=== PATIENT | female | born 1935 | race Caucasian/White ===

== ENCOUNTER 2021-09-26 13:18 | Outpatient (CLI) | payer OTHER, SELFPAY ==
[2021-09-26 14:07] LABS: Calcium 10.5 mg/dL (8.4-10.2)
== END 2021-09-26 13:19 | disposition home or self-care (01) ==
LOC: ANHLAB 13:20
PROVIDERS: PCP Family Medicine; Visit Provider Nurse Practitioner Family
DX: E83.51 Hypocalcemia (principal)
CPT/HCPCS: 36415; 82310

== ENCOUNTER 2022-01-05 15:20 | Outpatient (CLI) | payer OTHER, SELFPAY ==
[2022-01-05 16:17] LABS: Calcium 10.1 mg/dL (8.4-10.2)
== END 2022-01-05 15:21 | disposition home or self-care (01) ==
LOC: ANHLAB 15:21
PROVIDERS: PCP Family Medicine; Visit Provider Nurse Practitioner Family
DX: E83.51 Hypocalcemia (principal); E83.52 Hypercalcemia
CPT/HCPCS: 36415; 82310

== ENCOUNTER 2023-09-10 13:04 | Outpatient (CLI) | payer OTHER, SELFPAY ==
--- NOTE | ~2023-09-10 | US_ITS ---
EXAMINATION:US venous doppler LE BI INDICATION: TECHNIQUE: Multiple grayscale, color flow and Doppler images of the lower extremity deep venous syste ms were obtained and reviewed. COMPARISON: FINDINGS: The common femoral, superficial femoral and popliteal veins demonstrate normal respiratory variation, augmentation and compressibility. Color flow is also seen within the posterior tibial, pe roneal, greater saphenous and profunda veins. There is an irregular shaped hypoechoic mass posterior to the knee medially measuring 1.9 x 1.3 cm. IMPRESSION: 1: No lower extremity deep venous thrombosis. 2: Superficial oval hypoechoic mass posterior to the knee medially measuring up to 1.9 cm, likely he matoma. Recommend follow-up ultrasound for and 3-4 weeks to assess for improvement. Reviewed, dictated and finalized at location B. IMPRESSION: 1: No lower extremity deep venous thrombosis. 2: Superficial oval hypoechoic mass posterior to the knee medially measuring u p to 1.9 cm, likely hematoma. Recommend follow-up ultrasound for and 3-4 weeks to assess for improvement.
== END 2023-09-10 13:05 | disposition home or self-care (01) ==
LOC: ANHIMG 13:04
PROVIDERS: PCP Family Medicine; Visit Provider Nurse Practitioner Family
DX: M79.89 Other specified soft tissue disorders (principal)
CPT/HCPCS: 93970

== ENCOUNTER 2023-10-08 13:13 | Outpatient (CLI) | payer OTHER, SELFPAY ==
--- NOTE | ~2023-10-08 | US_ITS ---
EXAMINATION: US soft tissue LE RT DATE: 10/08/2023 13:38 INDICATION: Right lower limb mass posterior medial to the knee. TECHNIQUE: Multiple grayscale and Doppler ultrasound images of the right lower limb were obtained. COMPARISON: Ultrasound 09/10/2023 FINDINGS: There is thrombosis of the right greater saphenous vein with focal enlargement posterior to the knee. IMPRESSION: 1. Thrombosis of right greater saphenous vein with focal enlargement posterior to the knee correlatin g with the mass seen on prior imaging. Reviewed, dictated and finalized at location A. IMPRESSION: 1. Thrombosis of right greater saphenous vein with focal enlargement posterior to the knee correlating with the mass seen on prior imaging.
== END 2023-10-08 13:14 | disposition home or self-care (01) ==
LOC: ANHIMG 13:14
PROVIDERS: PCP Family Medicine; Visit Provider Nurse Practitioner Family
DX: M25.461 Effusion, right knee (principal); I82.811 Embolism and thrombosis of superficial veins of right lower extremity
CPT/HCPCS: 76882

== ENCOUNTER 2024-09-09 19:47 | Emergency (ER) | payer OTHER, SELFPAY ==
--- NOTE | ~2024-09-09 | CT_ITS ---
EXAMINATION: CT brain wo con DATE: 09/10/2024 00:11 INDICATION: Status post fall TECHNIQUE: Computed tomography (CT) of the head was performed without intravenous contrast. The dose- length product was 756.67 mGy-cm. Automated exposure control and iterative reconstruction technique were employed. COMPARISON: CT dated 10/01/2012 FINDINGS: Generalized atrophy. There are scattered mild periventricular and subcortical white matter changes, most likely related to small vessel ischemic disease (microangiopathy). No ventriculomegaly or midline shift. Basilar cisterns are patent. Small low-density extra-axial mass measuring 22 x 14 m m, slightly increased compared with prior study, likely benign meningioma. No acute hemorrhage, infar ction, mass or mass effect. IMPRESSION: 1. No acute intracranial abnormality. 2: Subtle increased size of extra-axial left parietal lobe low-density mass with broad-based dural at tachment measuring 22 x 14 mm, most consistent with benign meningioma. 3: Chronic age-related findings. Reviewed, dictated and finalized at location A. IMPRESSION: 1. No acute intracranial abnormality. 2: Subtle increased size of extra-axial left parietal lobe low-density mass wit h broad-based dural attachment measuring 22 x 14 mm, most consistent with benig n meningioma. 3: Chronic age-related findings.
--- NOTE | ~2024-09-09 | XR_ITS ---
XR chest 1V 09/10/2024 00:02 Indication: Status post fall. Chest pain. Procedure: AP view of the chest Comparison: 06/18/2012 Findings: Heart size normal. No focal air space disease, pulmonary edema, pleural effusion or suspect ed pneumothorax. Impression: 1: No acute cardiopulmonary disease. Reviewed, dictated and finalized at location A. Impression: 1: No acute cardiopulmonary disease.
--- NOTE | ~2024-09-09 | XR_ITS ---
XR pelvis 1-2V 09/10/2024 00:02 Indication: Status post fall. Pelvic pain. Procedure: AP view of the pelvis Comparison: 12/14/2011 Findings: Mild symmetric osteoarthritis of the hips. Pelvic rings intact. No fracture, subluxation or dislocation. There is levoscoliosis of the lumbar spine. No soft tissue abnormality. Nonspecific vis ualized bowel gas pattern. Impression: 1: Mild symmetric osteoarthritis of the hips. Reviewed, dictated and finalized at location A. Impression: 1: Mild symmetric osteoarthritis of the hips.
--- NOTE | ~2024-09-09 | XR_ITS ---
EXAM: XR shoulder RT min 2V DATE: 09/09/2024 22:45 HISTORY: fall . COMPARISON: None available. FINDINGS: Osteopenia. No fracture or dislocation. No lytic or blastic lesion. Mild AC joint and kadeem ohumeral joint osteoarthritis. Subacromial narrowing as can be seen with rotator cuff pathology. No e rosion or periosteal change. Soft tissues within normal limits. IMPRESSION: No acute osseous finding in the left shoulder. Reviewed, dictated and finalized at location K.
--- NOTE | ~2024-09-09 | XR_ITS ---
XR knee RT min 4V 09/10/2024 00:02 Indication: Right knee pain after fall Procedure: 4 views right knee Comparison: No prior studies for comparison. Findings: Mild tricompartment osteoarthritis. Chondrocalcinosis. No significant joint effusion. Osteo penia. Healed proximal fibular metaphyseal fracture. Impression: 1: Mild tricompartment osteoarthritis. Reviewed, dictated and finalized at location A. Impression: 1: Mild tricompartment osteoarthritis.
--- OUTSIDE RECORDS SUMMARY | 2024-09-09 19:49 | XMS_ITS | Clinical Summary ---
Author Organization [facility] Address [address] [place] [address] Care Team Providers Care Mining Engineering Technologist Name Role Phone Unavailable Primary Care Provider Unavailabl e Source Comments [facility],non-owned Affiliates and Associated Physician Practices is amultiple site organization consisting of ambulatory clinics and hospital sitesin [place], [place], [place] and [place]. This disclosure is being madepursuant to the Care Everywhere program and may not contain all information available regarding this patient. Last updated 17.[facility] Allergies No known active allergies Medications * Be aware that medications may not be up to date on this document. Alwaysverify current medications with the patient. lisinopril (ZESTRIL; PRINIVIL) 1 mg/ml SUSP Take by mouth once daily Active Social History Tobacco Use Types Packs/Day Years Used Date Smoking Tobacco: Never Smokeless Tobacco: Never Alcohol Use Standard Drinks/Week Comments Never 0 (1 standard drink = 0.6 oz pur e alcohol) AUDIT-C Answer Date Recorded Frequency of Alcohol Consumption Never 11/21/2018 Average Number of Drinks Not on file 019 Frequency of Binge Drinking Not on file 04/2018 Comments No Sex and Gender Information Value Date Recorded Sex Assigned at Not on file Legal Sex Female 2:02 PM CDT Gender Identity Not on file Sexual Orientation Not on file Last Filed Vital Signs Vital Sign Reading Time Taken Comments Blood Pressure 130/82 11/21/2018 2:10 PM CDT Pulse 74 11/21/2018 2:10 PM CDT Temperature 36.6 C (97.9 F) 11/21/2018 2:10 PM CDT Respiratory Rate 16 11/21/2018 2:10 PM CDT Oxygen Saturation 97% 11/21/2018 2:10 PM CDT Inhaled Oxygen Concentration - - Weight 70.3 kg (155 lb) 11/21/2018 2:10 PM CDT Height 152.4 cm (5') 11/21/2018 2:10 PM CDT Body Mass Index 30.27 11/21/2018 2:10 PM CDT Plan of Treatment Health Maintenance Due Date Last Done Comments BONE DENSITY TESTING 1935 DTAP/TDAP/TD VACCINES (1 - Tdap) 1954 PNEUMOCOCCAL VACCINE 50+ (1 of 1 - PCV) 1985 ZOSTER VACCINE (1 of 2) 1985 Respiratory Syncytial Virus (RSV) Vaccine Pt: or over 60 yrs (1 - 1-dose 75+ series) 2010 COVID-19 VACCINE ( - 2023-2 5 season) 2023 DEPRESSION SCREENING 02/20/2024 INFLUENZA VACCINE (#1) 2024 HEPATITIS B VACCINE Aged Out No longe r eligible based on patient's age to complete this topic HIB VACCINE Aged Out No longer eligi ble based on patient's age to complete this topic HPV VACCINE Aged Out No longer eligi ble based on patient's age to complete this topic MENINGOCOCCAL (Group B) VACC INE SHARED DECISION-MAKING Aged Out No longer eligibl e based on patient's age to complete this topic MENINGOCOCCAL GROUPS A/C/Y/W VACCINE Aged Out No longer eligible b ased on patient's age to complete this topic Insurance [employer]
--- OUTSIDE RECORDS SUMMARY | 2024-09-09 19:49 | XMS_ITS | Continuity of Care Document ---
Author Organization [facility] Address [address] [place] [address] [address] [place] [address] Phone Care Team Providers Care Vulcanizing Press Operator Name Role Phone Ricketts OD, Param Unavailable Unavailable Procedures Procedure Date Eye Exam, New Patient Refraction Advance Directives Directive Yes / No Effective Date File Name No Information Encounters Encounter Description Practice Location Reason(s) For Visit Diagnoses Date Provider Providers Copied on Encounter [facility], [id number] [place] [address] [address], [place], [place], [id number], [place] tel:[phone] [facility] No Information 3-201 0 Ricketts OD Param. [address] , [address], [place], [address], [place]. tel:[phone] Family History Family Member Type Diagnosis Age At Onset No Information Payers Payer name Insurance type Covered constitution party ID Authoriza tion(s) No Information Social History Type Description Quantity Date Captured Comments Sex Female Smoking Status No Information Chief Complaint And Reason For Visit No Information Reason For Referral Reason For Referral No Information History Of Present Illness Encounter Date Complaint History Of Prese nt Illness No Information Functional Status Date Functional Assessmen t No Information Instructions Date Instruction Additional Infor mation No Information Assessments Type Assessment Date No Information Patient Care Teams Name Effective Dates (start - stop) Status Members No Information
--- OUTSIDE RECORDS SUMMARY | 2024-09-09 19:49 | XMS_ITS | Clinical Summary ---
Author Organization [facility] Address [address] [place] [address] Care Team Providers Care Resistor Winder Name Role Phone None, Provider Primary Care Provider Unavaila ble Allergies Active Allergy Reactions Criticality Noted Date Comments Diphenhydramine Rash Low 05/12/2024 Medications amLODIPine (NORVASC) 5 MG tablet Take 1 tablet (5 mg total) by mouth daily. Active Cyanocobalamin (B-12) 2000 MCG Tab Active lisinopril (PRINIVIL) 20 MG tablet Take 1 tablet (20 mg total) by mouth daily. Active Multiple Vitamins-Minera ls (RA VISION-MARY PRESERVE OR) Active sertraline (ZOLOFT) 25 MG tablet Take 1 tablet (25 mg total) by mouth daily. Active vitamin D3 10 mcg tablet Take 12.5 tablets (125 mcg total) by mouth daily. Active Social History Tobacco Use Types Packs/Day Years Used Date Smoking Tobacco: Never Smokeless Tobacco: Never Tobacco Cessation:Counseling Given: Not Answered Alcohol Use Standard Drinks/Week Comments Never 0 (1 standard drink = 0.6 oz pur e alcohol) Comments No Sex and Gender Information Value Date Recorded Sex Assigned at Not on file Legal Sex Female 10:04 AM CDT Gender Identity Not on file Sexual Orientation Not on file Last Filed Vital Signs Vital Sign Reading Time Taken Comments Blood Pressure 176/75 05/19/2024 10:47 AM CDT Pulse 75 05/19/2024 10:47 AM CDT Temperature 36.4 C (97.6 F) 05/19/2024 9:52 AM CDT Respiratory Rate 17 05/19/2024 10:47 AM CDT Oxygen Saturation 98% 05/19/2024 10:47 AM CDT Inhaled Oxygen Concentration - - Weight 70.3 kg (155 lb) 05/19/2024 9:52 AM CDT Height 147.3 cm (4' 10) 05/19/2024 9:52 AM CDT Body Mass Index 32.4 05/19/2024 9:52 AM CDT Plan of Treatment Health Maintenance Due Date Last Done Comments DTaP, Tdap and Td Vaccines (1 - Tdap) 1954 RSV Immunization or 60+ Years (1 - 1-dose 75+ series) 2010 Pneumococcal Vaccine: 50+ Years (2 of 2 - PCV) 12/31/2013 12/31/2012 COVID-19 Vaccine ( season) 2024 11/27/2023, 12/01/2021, 07/12/2021, Additional history exists Zoster Vaccines Completed 09/01/2021, 05/09/2021 Meningococcal B Vaccine Aged Out No l onger eligible based on patient's age to complete this topic Meningococcal Vaccine Aged Out No bessy yareli eligible based on patient's age to complete this topic RSV Immunizations Under 20 Months Aged Out No longer eligible based on patient's age to complete this topic Medical Devices Implanted Type Area Industrial Property Appraiser Device Identifier Shelf Expiration Date Model / Serial / Lot Iol Tecnis Simplicity Dcb00 - [id number] Implanted:Qty: 1 on 05/19/2024 by Raghu Ferrell MD at [facility] Lens Right: Eye [employer] 01/11/2027 DCB00 / [id number] / Omni Surgical System Implanted:Qty: 1 on 05/19/2024 by Raghu Ferrell MD at [facility] Right: Eye 10/10/2026 1108 / / [id number] Insurance [id number] [place] [address] [employer] [facility] Advance Directives Documents on File Type Date Recorded Patient Contamination Consultant Expl anation Power of Contact Center Representative 05/19/2024 10:10 AM POA of Health Care Care Teams Resistor Winder Relationship Specialty Start Date End Date None, Provider, PCP - General UNKNOWN PHYSICIAN SPECIALTY 05/16/24
[2024-09-09 19:51] VITALS: BP 150/65; PULSE 90; RESP 17; TEMP 36.3; O2SAT 99
[2024-09-09 23:36] VITALS: BP 136/76; PULSE 86; RESP 18; O2SAT 100
--- NOTE | 2024-09-09 23:43 | ED_ITS ---
HPI - Fall General Chief Complaint: Fall Stated Complaint: multiple falls today Time Seen by Provider: 09/09/24 23:35 Source: patient Mode of arrival: ambulatory Limitations: other (poor historian) History of Present Illness HPI Narrative: This is an 89-year-old female that presents emergency department after 2 falls today. Reportedly patient had a fall before dinner. They went to then check on her after dinner and she was on the floor again. Patient is unsure of what caused her to fall. Reports right shoulder pain, bruising to the right knee, right hip pain. Denies prodromal symptoms, vomiting, focal numbness or weakness. Related Data Home Medications ?Medication ?Instructions ?Recorded ?Confirmed ?Last Taken ?Type bimatoprost 0.03 % eye drops 1 drp EACH EYE DAILY 06/21/21 04/21/24 Unknown History aspirin 81 mg tablet,delayed 81 mg PO DAILY 11/26/23 04/21/24 Unknown History release (Enteric Coated Aspirin) mecobalamin (vitamin B12) 1,000 1,000 mcg PO DAILY 11/26/23 04/21/24 Unknown History mcg chewable tablet Allergies Allergy/AdvReac Type Severity Reaction Status Date / Time diphenhydramine Allergy Unknown Unknown Verified 04/21/24 15:06 Review of Systems 2 Review of Systems: All systems reviewed & are unremarkable except as noted in HPI and below PMFSH Past Medical History Medical History Ataxia Cellulitis of chest wall Dermatitis Essential (primary) hypertension Hematoma of right lower leg Low vitamin B12 level Right hip pain Social History Social History Smoking status: Never smoker Alcohol intake: never Exam 2 Narrative: GENERAL: Elderly, well-nourished, and in no acute distress. HEAD: Normocephalic, atraumatic. EYES: PERRLA and EOMI. ENT: Nares clear, no rhinorrhea or epistaxis. Mucous membranes moist. Oropharynx without tonsillar hypertrophy exudate or other lesions. Bilateral TMs pearly han non-bulging NECK: Supple. No adenopathy or masses. CHEST: Clear to auscultation. No respiratory distress. No wheezes rales or rhonchi HEART: Regular rate and rhythm. No murmur heard. Normal peripheral pulses. ABDOMEN: Soft, nontender, nondistended, normal active bowel sounds. EXTREMITIES: Normal range of motion. No edema or obvious deformity. Strength equal in bilateral upper and lower extremities (5/5) SKIN: Warm, dry, no rash. NEURO: No focal deficits. Alert and oriented x3. Cranial nerves 2-12 grossly intact PSYCH: Normal mood and affect Course Course Emergency Course: Patient and family updated on workup and agree with plan of care Vital Signs Vital signs: Vital Signs Temperature 97.3 F L 09/09/24 19:51 Pulse Rate 90 09/09/24 19:51 Respiratory Rate 17 09/09/24 19:51 Blood Pressure 150/65 H 09/09/24 19:51 Pulse Oximetry 99 09/09/24 19:51 Oxygen Delivery Room Air 09/09/24 19:51 Temperature 97.3 F L 09/09/24 19:51 Pulse Rate 86 09/09/24 23:36 Respiratory Rate 18 09/09/24 23:36 Blood Pressure 136/76 09/09/24 23:36 Pulse Oximetry 100 09/09/24 23:36 Oxygen Delivery Room Air 09/09/24 19:51 MDM - Fall MDM Narrative Medical decision making narrative: Patient presents the emergency department after 2 falls today her facility. She is afebrile and nontoxic appearing. She is neurologically intact. CBC with mild leukocytosis to 11.6. Metabolic panel without concerning findings. Urine with evidence of infection. This was sent for culture. Patient given 1st dose of antibiotics IV. X-rays without acute osseous abnormalities. CT brain shows a meningioma. No acute findings. Patient and family updated on workup and agree with plan of care. She will be continued on oral antibiotics. She was given warnings to return to the ER Differential Diagnosis Differential diagnosis: Likely concussion without loss of consciousness and other (contusion, shoulder sprain, UTI, dehydration, electrolyte derangement) Lab Data Attestation: I reviewed the patient's lab results. 09/10/24 00:31 09/10/24 00:31 Labs: Lab Results 09/10/24 09/10/24 Range/Units 00:31 00:56 WBC 11.6 H (4.5-10.0) K/mm3 RBC 4.24 (4.2-5.4) M/mm3 Hgb 12.6 (12.0-15.0) g/dL Hct 38.6 (37.0-47.0) % MCV 91.0 (80-100) fl MCH 29.7 (26-34) pg MCHC 32.6 (32-36) g/dl RDW 14.1 (11.5-14.5) % Plt Count 232 (150-375) k/mm3 MPV 9.4 (7.4-10.4) fl Immature Gran % (Auto) 0.3 (0-0.5) % Neut % (Auto) 75.6 H (45.5-73.1) % Lymph % (Auto) 15.1 L (18.3-44.2) % [place] % (Auto) 8.3 (2.6-8.5) % Eos % (Auto) 0.4 (0-4.4) % Baso % (Auto) 0.3 (0.2-1.2) % Lymph # (Auto) 1.76 (0.9-3.2) K/mm3 [place] # (Auto) 1.0 H (0.1-0.6) K/mm3 Eos # (Auto) 0.1 (0-0.3) K/mm3 Baso # (Auto) 0.0 (0.0-0.1) K/mm3 Abs Immat Gran (auto) 0.04 H (0.00-0.031) K/mm3 Absolute Neuts (auto) 8.8 H (1.3-6.7) K/mm3 Absolute Nucleated RBC 0.000 (0.0-0.012) K/mm3 Nucleated RBC % 0.0 (0.0-0.2) % Sodium 138 (137-145) mmol/L Potassium 4.0 (3.4-5.0) mmol/L Chloride 107 (98-107) mmol/L Carbon Dioxide 25 (22-30) mmol/L Anion Gap 6 (4-12) mmol/L BUN 21 H (7-17) mg/dL Creatinine 0.75 (0.7-1.0) mg/dL Estim Creat Clear Calc 33 ml/min Estimated GFR > 60 (59 - ) Glucose 113 H (65-110) mg/dL Calcium 10.3 H (8.4-10.2) mg/dL Total Bilirubin 0.5 (0.2-1.3) mg/dL AST 41 H (14-36) U/L ALT 28 (6-35) U/L Alkaline Phosphatase 111 (38-126) U/L Total Protein 7.0 (6.3-8.2) g/dL Albumin 4.1 (3.5-5.1) g/dL Urine Color Yellow (Yellow) Urine Appearance Cloudy H (Clear) Urine pH 6.5 (5.0-9.0) Ur Specific [place] 1.020 (1.001-1.035) Urine Protein Trace (Negative) mg/dL Urine Glucose (UA) Negative (Negative) mg/dL Urine Ketones Trace H (Negative) mg/dL Ur Blood (Man) Negative (Negative) Urine Nitrate Positive H (Negative) Urine Bilirubin Negative (Negative) Urine Urobilinogen 1.0 (<2.0) mg/dL Leukocyte Esterase Rfl 3+ H (Negative) SAVANAH/UL Urine RBC 3-5 H (0-2) /hpf Urine WBC >100 H (0-3) /hpf Ur Squamous Epith Cells Occasional (Few) /hpf Urine Bacteria 4+ H /hpf Urine Casts 0-2 Imaging Data Radiologist's impression: ITS Impressions Shoulder X-Ray 09/09/24 22:49 IMPRESSION: No acute osseous finding in the left shoulder. CT brain: Low-density extra-axial mass lesion superficial to the left frontal lobe measuring 22 x 14 mm. Present on previous examination. Consider meningioma. No mass effect upon the brain. Mild cerebral atrophy and periventricular white matter low density consistent with chronic small-vessel disease. No acute large vessel infarct or intracranial hemorrhage. The paranasal sinuses and mastoid air cells are normal. No skull fracture or scalp hematoma. X-ray pelvis: Slight narrowing and osteophytosis of the right hip joint consistent with osteoarthritis. No hip or pelvic fracture. Degenerative changes in the lower lumbar spine. Constipation Right knee x-ray: Mild diffuse osteopenia. Probable old healed fracture of the proximal fibula. Osseous structures are otherwise intact Chest x-ray: Borderline cardiomegaly. lungs are well expanded. Mild degenerative changes in the lower thoracic spine. Skeletal structures are otherwise unremarkable ECG Data EKG #1: ECG completion date: 09/10/24 EKG Interpretation: normal rate, sinus rhythm, normal QT and no acute changes (compared to EKG 05/2012) Critical Care Time Critical Care Time Critical Care Time: No Discharge Plan Discharge Clinical Impression: Fall, Acute UTI Patient Disposition: NH Alf/Asst Living Condition: Stable Instructions: Antibiotic Form, Urinary Tract Infection in Older Adults (ED) Additional Instructions: Return to the emergency department if you experience fever, chest pain, shortness of breath, abdominal pain with nausea and vomiting, weakness, numbness, or any other symptoms that are concerning to you. Take oral antibiotics as prescribed Follow up with primary care doctor Patient Language: Tamazight Prescriptions: New cefdinir 300 mg capsule 300 mg PO Q12H 4 Days Qty: 8 0RF No Action bimatoprost 0.03 % drops 1 drp EACH EYE DAILY aspirin [Enteric Coated Aspirin] 81 mg tablet,delayed release (DR/EC) 81 mg PO DAILY mecobalamin (vitamin B12) 1,000 mcg tablet,chewable 1,000 mcg PO DAILY sertraline 25 mg tablet 25 mg PO DAILY Qty: 90 2RF lisinopril 20 mg tablet 20 mg PO DAILY Qty: 90 3RF amlodipine 5 mg tablet 5 mg PO DAILY Qty: 90 3RF PreserVision AREDS-2 250-90-40-1 mg tablet,chewable 1 tablet PO QAM AND QPM Qty: 60 2RF Follow-up/Referrals: Saad Burt MD [Primary Care Provider] - Stand Alone Forms: Group Home Discharge
--- OUTSIDE RECORDS SUMMARY | 2024-09-09 23:53 | XMS_ITS | Clinical Summary ---
Author Organization [facility] Address [address] [place] [address] Care Team Providers Care Disbursing Agent Name Role Phone Unavailable Primary Care Provider Unavailabl e Source Comments [facility],non-owned Affiliates and Associated Physician Practices is amultiple site organization consisting of ambulatory clinics and hospital sitesin [place], [place], [place] and [place]. This disclosure is being madepursuant to the Care Everywhere program and may not contain all information available regarding this patient. Last updated 17.[facility] Allergies No known active allergies Medications * [...] patient's age to complete this topic Insurance [id number]
--- OUTSIDE RECORDS SUMMARY | 2024-09-09 23:53 | XMS_ITS | Clinical Summary ---
Author Organization [facility] Address [address] [place] [address] Care Team Providers Care Senior Sql Server Dba Name Role Phone None, Provider Primary Care [...] this topic Medical Devices Implanted Type Area Cool Roofing Installer Device Identifier Shelf Expiration Date Model / Serial / Lot Iol Tecnis Simplicity Dcb00 - [id number] Implanted:Qty: 1 on 05/19/2024 by Raghu Ferrell MD at [facility] Lens Right: Eye [employer] 01/11/2027 DCB00 / [id number] / Omni Surgical System Implanted:Qty: 1 on 05/19/2024 by Raghu Ferrell MD at [facility] Right: Eye 10/10/2026 1108 / / [id number] Insurance [id number] [place] [address] [employer] [facility] Advance Directives Documents on File Type Date Recorded Patient Wrap Turner Expl anation Power of Dealer Relationship Manager 05/19/2024 10:10 AM POA of Health Care Care Teams Senior Sql Server Dba Relationship Specialty Start Date End Date None, Provider, PCP - General UNKNOWN PHYSICIAN SPECIALTY 05/16/24
--- OUTSIDE RECORDS SUMMARY | 2024-09-09 23:53 | XMS_ITS | Continuity of Care Document ---
Author Organization [facility] Address [address] [place] [address] [address] [place] [address] Phone Care Team Providers Care Object Oriented Developer Name Role Phone Ricketts OD, Param Unavailable Unavailable Procedures Procedure Date Eye Exam, New Patient Refraction Advance Directives Directive Yes / No Effective Date File Name No Information Encounters Encounter Description Practice Location Reason(s) For Visit Diagnoses Date Provider Providers Copied on Encounter [facility], [address] [place] [address] [address], [place], [place], [id number], [place] tel:[phone] [facility] No Information 3-201 0 Ricketts OD Param. [address] , [address], [place], [address], [place]. tel:[phone] Family History Family Member Type Diagnosis Age At Onset No Information Payers Payer name Insurance type Covered democrat ID Authoriza tion(s) No Information Social History [...]
--- NOTE | 2024-09-10 00:25 | ECG_ITS ---
Test Date: 2024-09-10 00:25:42 Measurements Intervals [place] Rate: 77 P: 33 MD: 143 QRS: -64 QRSD: 150 T: -5 QT: 407 QTc: 462 Interpretive Statements SINUS RHYTHM POSSIBLE LEFT ATRIAL ENLARGEMENT [-0.1mV P-WAVE IN V1/V2] LEFT AXIS DEVIATION [QRS AXIS < -30] RIGHT BUNDLE BRANCH BLOCK [120+ ms QRS DURATION, UPRIGHT V1, 40+ ms S IN I/aVL/V4/V5/V6] POSSIBLE LEFT VENTRICULAR HYPERTROPHY [VOLTAGE CRITERIA PLUS LAE OR QRS WIDENING] POSSIBLE SEPTAL MYOCARDIAL INFARCTION , PROBABLY OLD [30 ms Q WAVE IN V1/V2] ABNORMAL ECG Electronically Signed On 09-10-2024 10:04:34 CDT by Franco Payton M.D.
[2024-09-10 00:57] LABS: Hematocrit 38.6 % (37.0-47.0); Hemoglobin 12.6 g/dL (12.0-15.0); Immature Granulocyte Percent A 0.3 % (0-0.5); Lymphocytes Absolute Auto 1.76 K/mm3 (0.9-3.2); Mean Corpuscular HGB Conc 32.6 g/dl (32-36); Mean Corpuscular Hemoglobin 29.7 pg (26-34); Mean Corpuscular Volume 91.0 fl (80-100); Nucleated Red Blood Cells Absolute Auto 0.000 K/mm3 (0.0-0.012); Nucleated Red Blood Cells Perc 0.0 % (0.0-0.2); Platelet Count Result 232 k/mm3 (150-375); Red Blood Count 4.24 M/mm3 (4.2-5.4); White Blood Count 11.6 K/mm3 (4.5-10.0)
[2024-09-10 01:02] LABS: Alanine Aminotransferase 28 U/L (6-35); Albumin Level 4.1 g/dL (3.5-5.1); Alkaline Phosphatase 111 U/L (38-126); Anion Gap 6 mmol/L (4-12); Aspartate Amino Transferase 41 U/L (14-36); Bilirubin,Total 0.5 mg/dL (0.2-1.3); Blood Urea Nitrogen 21 mg/dL (7-17); Calcium 10.3 mg/dL (8.4-10.2); Carbon Dioxide 25 mmol/L (22-30); Chloride 107 mmol/L (98-107); Estimated CRCL calculation 33 ml/min; Estimated Glomerular Filt Rate > 60; Glucose 113 mg/dL (65-110); Potassium 4.0 mmol/L (3.4-5.0); Sodium 138 mmol/L (137-145); Total Protein 7.0 g/dL (6.3-8.2)
[2024-09-10 01:07] LABS: Add Urine Microscopic? YES; Appearance Urine Cloudy (Clear); Glucose Urine UA Negative (Negative); Leukocyte Esterase Ur 3+ LEU/UL (Negative); Nitrate Urine Positive (Negative); Non Pathogenic Casts 0-2; Specific Grav Ur 1.020 (1.001-1.035)
[2024-09-10] MEDS: ACETAMINOPHEN 500 MG TABLET 1000 MG PO (02:20)
[2024-09-10] MEDS: cefTRIAXone 1 GM in SODIUM CHLORIDE 0.9% IV 50 ML 100 ML IVPB (02:21)
[2024-09-10 03:11] VITALS: BP 129/86; PULSE 79; RESP 18; O2SAT 99
== END 2024-09-10 03:12 ==
PROVIDERS: Emergency Provider Physician Assistant; PCP Family Medicine
DX: S80.01XA Contusion of right knee, initial encounter (principal); S79.911A Unspecified injury of right hip, initial encounter; S89.91XA Unspecified injury of right lower leg, initial encounter; N39.0 Urinary tract infection, site not specified; I10 Essential (primary) hypertension; M17.11 Unilateral primary osteoarthritis, right knee; I45.10 Unspecified right bundle-branch block; R94.31 Abnormal electrocardiogram [ECG] [EKG]; W19.XXXA Unspecified fall, initial encounter
CPT/HCPCS: 36415; 70450; 71045; 72170; 73030; 73564; 80053; 81001; 85025; 87086; 93005; 96365; 99284; A9270; J0696